=== PATIENT | male | born 1950 | race Caucasian/White ===

== ENCOUNTER 2025-05-11 06:32 | Observation (INO) | payer OTHER, SELFPAY ==
[2025-05-11] VITALS (50 sets, daily range): BP systolic 100–158; BP diastolic 61–78; PULSE 58–81; RESP 13–34; TEMP 36.6–36.9; O2SAT 92–99; BMI 27.6
--- NOTE | ~2025-05-11 | CT_ITS ---
EXAMINATION: CTA chest abdomen pelvis, 05/11/2025 8:45 CDT HISTORY: CP radiating to back; r/o dissection COMPARISON: No comparisons available. TECHNIQUE: CTA scan with 3D Reconstructions of the chest, abdomen and pelvis was performed with contrast Isovue 300, 92cc injected IV. One or more of the following dose reduction techniques were used: automated exposure control, adjustment of the mA and/or kV according to patient size, use of iterative reconstruction technique. Unless otherwise stated, incidental findings do not require dedicated follow up imaging FINDINGS: CT chest: No significant coronary calcification is present ([id number]) LUNGS: No tracheomalacia. No bronchiectasis. Minimal emphysematous changes. HEART AND PERICARDIUM: Mild cardiomegaly. AORTA: Normal caliber aorta. MEDIASTINUM: Unremarkable. THYROID: The thyroid is unremarkable. CT abdomen: LIVER: Portal vein patent. SPLEEN: Unremarkable, no splenomegaly. KIDNEYS: Right Kidney: Right kidney superior pole complex cyst 2.5 x 2.5 cm incompletely evaluated with additional complex cyst, outpatient renal ultrasound recommended. Left Kidney: Unremarkable. No calculi. No hydronephrosis ADRENAL GLANDS: Unremarkable. PANCREAS: Mild pancreatic atrophy. GALLBLADDER/BILIARY: Post cholecystectomy. STOMACH AND ESOPHAGUS: Visualized stomach and esophagus within normal limits. BOWEL/MESENTERY: Moderate fecal content. No colitis or diverticulitis. Appendix normal. Mesentery normal. No dilated small bowel loops. RETROPERITONEUM: Unremarkable AORTA/VASCULATURE: Normal caliber aorta. FREE FLUID OR FREE AIR: No free fluid.. CT pelvis: SOLID ORGANS/REPRODUCTIVE: Prostate not identified. BLADDER: Within normal limits. LYMPHADENOPATHY: No lymphadenopathy. OSSEOUS STRUCTURES: No acute osseous abnormality.No suspicious lesions. OVERLYING SOFT TISSUES: Postsurgical changes abdominal wall. Soft tissues right- sided. Prosthetic implant. Small bilateral fat-containing inguinal hernia. IMPRESSION: 1. No aneurysm or dissection, the major aortic tributaries are unremarkable. No acute process identified. Incidental findings detailed above Reviewed, dictated and finalized at location A.
--- NOTE | ~2025-05-11 | XR_ITS ---
EXAMINATION: XR chest 2V, 05/11/2025 6:54 CDT HISTORY: CHEST PAIN COMPARISON: No comparisons available. Technique: 2 views obtained. Findings: The lungs are clear, no effusion. No pneumothorax. Heart is normal size. Mediastinal and hilar contours are within normal limits. Bony thorax no acute abnormality. Impression: No acute cardiopulmonary abnormality. Reviewed, dictated and finalized at location A. Impression: No acute cardiopulmonary abnormality.
--- NOTE | 2025-05-11 06:34 | ECG_ITS ---
Test Date: 2025-05-11 06:42:43 Measurements Intervals [place] Rate: 79 P: 58 OK: 170 QRS: -6 QRSD: 102 T: 34 QT: 361 QTc: 416 Interpretive Statements SINUS RHYTHM WITH SINUS ARRHYTHMIA NONSPECIFIC T-WAVE ABNORMALITY ABNORMAL ECG No previous ECG available for comparison Electronically Signed On 05-11-2025 09:48:49 CDT by Sven Preciado M.D.
[2025-05-11 06:52] LABS: Hematocrit 42.4 % (42.0-52.0); Hemoglobin 14.7 g/dL (14.0-18.0); Immature Granulocyte Percent A 0.3 % (0-0.5); Lymphocytes Absolute Auto 1.56 K/mm3 (0.9-3.2); Mean Corpuscular HGB Conc 34.7 g/dl (32-36); Mean Corpuscular Hemoglobin 29.6 pg (26-34); Mean Corpuscular Volume 85.3 fl (80-100); Nucleated Red Blood Cells Absolute Auto 0.000 K/mm3 (0.0-0.012); Nucleated Red Blood Cells Perc 0.0 % (0.0-0.2); Platelet Count Result 211 k/mm3 (150-375); Red Blood Count 4.97 M/mm3 (4.6-6.20); White Blood Count 6.3 K/mm3 (4.5-10.0)
[2025-05-11 07:03] LABS: INR 0.9; Partial Thromboplastin Time 26.1 Seconds (22.3-36.8); Prothrombin Time 12.8 Seconds (11.1-14.7)
[2025-05-11 07:14] LABS: Alanine Aminotransferase 25 U/L (6-50); Albumin Level 4.5 g/dL (3.5-5.1); Alkaline Phosphatase 90 U/L (38-126); Anion Gap 9 mmol/L (4-12); Aspartate Amino Transferase 27 U/L (17-59); Bilirubin,Total 0.5 mg/dL (0.2-1.3); Blood Urea Nitrogen 21 mg/dL (9-20); Calcium 9.1 mg/dL (8.4-10.2); Carbon Dioxide 24 mmol/L (22-30); Chloride 105 mmol/L (98-107); Estimated CRCL calculation 79 ml/min; Estimated Glomerular Filt Rate > 60; Glucose 113 mg/dL (65-110); Lipase 140 U/L (23-300); Potassium 3.8 mmol/L (3.4-5.0); Sodium 138 mmol/L (137-145); Total Protein 7.2 g/dL (6.3-8.2)
[2025-05-11 07:24] LABS: Troponin I < 0.012 ng/mL (0.000-0.034)
--- NOTE | 2025-05-11 08:23 | ED.CHESTPAIN ---
HPI - Chest Pain General Chief Complaint: Chest Pain Stated Complaint: chest pain Time Seen by Provider: 05/11/25 07:36 Source: patient and family () Mode of arrival: ambulatory Limitations: no limitations History of Present Illness HPI narrative: Patient presents with report of acute onset left-sided chest pain starting at 530 this morning and radiating towards his back. Patient states he is in considerable amount of pain. At 1st he thought it was indigestion and so he took an antacid but there was no relief. He describes it as a stabbing. No radiation to jaw or arms. He states awhile ago he had some right lower extremity swelling but that was after an ankle sprain and it did resolve. No edema currently. He has had a cough for the past 2-4 weeks and is currently being treated for bronchitis. Not on anticoagulation. Takes 81 mg aspirin per day. For the cough he sometimes has to lb on his chest but is already productive of clear sputum. Patient had similar pain like this before and had a myocardial infarction approximately 20 years ago for which 1 stent was placed at [facility] in [place]. Follows with insurance and financial services agent Dr. Homar Eden. He does feel short of breath. He denies any nausea, vomiting, fevers or chills. He is currently on steroids, prednisone. He states he was also prescribed erythromycin (?, denies it being azithromycin) but has not been taking this due to concern for interference with the trazodone he takes at night to sleep. History of prostate cancer status post removal of prostate and 35 rounds of radiation. He subsequently had urinary incontinence and now has an AUS. Cardiac risk factors HTN: Yes HLD: Yes DM: No (previously on metformin but lost 60 pounds and removed from diagnosis) Obese: Yes by today's measurements, slightly Smoker: No Personal history MT/TIA/CVA: Yes Fam Hx MT in first degree relative <65yo: No (father >65) Related Data Home Medications ?Medication ?Instructions ?Recorded ?Confirmed ?Last Taken ?Type aspirin 81 mg capsule 81 mg PO DAILY 05/11/25 05/11/25 05/10/25 21:00 History atorvastatin 40 mg tablet 40 mg PO DAILY 05/11/25 05/11/25 05/10/25 21:00 History carvedilol 6.25 mg tablet 6.25 mg PO BID 0905/11/25 05/10/25 21:00 History methylprednisolone 4 mg tablets in See Rx Instructions .Route .COMPLEX 05/11/25 05/11/25 05/10/25 History a dose pack [id number] 300 mcg-K 60 1 tablet PO DAILY 05/11/25 05/11/25 05/10/25 09:00 History mcg-lycop 600 mcg-lutein 300 mcg tablet ([facility]) nifedipine 60 mg tablet,extended 60 mg PO DAILY 05/11/25 05/11/25 05/10/25 21:00 History release pantoprazole 40 mg tablet,delayed 40 mg PO DAILY 05/11/25 05/11/25 05/10/25 09:00 History release spironolactone 25 mg tablet 25 mg PO DAILY 05/11/25 05/11/25 05/10/25 09:00 History tadalafil 20 mg tablet 20 mg PO PRN PRN sexual activity 05/11/25 05/11/25 05/04/25 History trazodone 100 mg tablet 100 mg PO DAILY 05/11/25 05/11/25 05/10/25 21:00 History valsartan 80 mg tablet 80 mg PO BID 05/11/25 05/11/25 05/10/25 21:00 History Allergies Allergy/AdvReac Type Severity Reaction Status Date / Time Penicillins Allergy Unknown Unknown Verified 05/11/25 06:40 [facility] Past Medical History Medical History (Updated 05/11/25 @ 14:52 by Dora Rubalcava APRN) Hyperlipidemia Hypertension History of prostate cancer s/p removal and radiation Myocardial infarct approx 2004 Surgical History Surgical History H/O heart artery stent x1, [facility] History of urologic surgery AUS, artificial urinary sphincter Family History Family History Father Acute myocardial infarction >65yo Social History Social History Social History: Smoking status: Never smoker Lack of Transportation: No Lack of Food: Never True Current Housing: I Have Housing Concerned About Future Housing: No Difficulty Paying Gas/Electric Bills: No Difficulty Paying for Meds: No Currently Unemployed: No Education: High School Diploma/GED Difficulty w/ Childcare or Family Care: No Living arrangements: with family Additional living arrangements comments: Spouse/ Sexual Orientation (if Verbalized by the Patient): Lesbian, [place]antig[place], or Homosexual Spiritual care concerns: No Exam Narrative: GENERAL: Well-appearing, well-nourished HEAD: Normocephalic, atraumatic. EYES: Non injected, non icteric ENT: Nares clear, no rhinorrhea or epistaxis. Gross auditory acuity intact. NECK: Supple. No meningismus. CHEST: Speaking in full sentences. No respiratory distress. Lungs clear to auscultation bilaterally without crackles or wheezes. HEART: Regular rate and rhythm. . ABDOMEN: Soft, nondistended. No rigidity or guarding. Not peritoneal EXTREMITIES: Normal range of motion. No bilateral lower extremity edema. SKIN: Warm, dry, no rash. NEURO: No focal deficits. Alert and oriented. Answering questions. Following commands. Normal speech without aphasia or dysarthria. PSYCH: Normal mood and affect. Course Vital Signs Vital signs: Vital Signs Temperature 98.4 F 05/11/25 06:37 Pulse Rate 81 05/11/25 06:37 Respiratory Rate 14 05/11/25 06:37 Blood Pressure 140/71 05/11/25 06:37 Pulse Oximetry 97 05/11/25 06:37 Oxygen Delivery Room Air 05/11/25 06:37 Temperature 97.9 F 05/12/25 04:00 Pulse Rate 68 05/12/25 04:00 Respiratory Rate 15 05/12/25 04:00 Blood Pressure 116/57 L 05/12/25 04:00 Pulse Oximetry 97 05/12/25 04:00 Oxygen Delivery Room Air 05/11/25 06:37 MDM - Chest Pain MDM Narrative Medical decision making narrative: Patient presents with chest pain started at 5:30 a.m. this morning and radiates towards his back. In the emergency department they are afebrile with vital signs within normal limits. HEART SCORE History 2 highly suspicious 1 moderately suspicious 0 slightly suspicious History score [address] depression/elevation not due to LBBB, LVH, or digoxin [address] depression but LBBB, LVH, nonspecific repolarization changes 0 normal ECG score 0 Age 2 >/= 65 1 45-64 0 <45 Age score 2 Risk factors (HTN, hypercholesterolemia, DM, obesity with BMI >30, current smoker or cessation </=3mo), positive fam hx with parent or sibling with CVD before age 65, atherosclerotic disease (prior MT, PCI/CABG, CVA/TIA, or peripheral arterial disease) 2 >/= 3 risk factors or history of atherosclerotic dz 1 - 1-2 risk factors 0 no known risk factors Risk factor score 2 Initial Troponin 2 >3 times normal limit 1 1-3 times normal limit 0 less than or equal to normal limit Troponin score 0 Total HEART Score 4 D-dimer mildly elevated. YEARS Algorithm : No Clinical signs of DVT: No Hemoptysis: No PE is most likely diagnosis: No D-dimer >1000ng/mL: No Result: PE Excluded. Will defer further work up for this. Patient received aspirin as well as sublingual nitroglycerin. He notes that the nitroglycerin immediately improved his symptoms from 4 out of 10 in severity to <1. States his last stress test was approximately 1 year ago although the date he had his myocardial infarction approximately 20 years ago was the same day as he had a negative/reassuring stress test. Says it has been several years since he had an echocardiogram. Repeat troponin normal. Did not receive call back from AM hospitalist. Discussed patient with therapeutic consultant mid-morning hospitalist Dr Garcia who accepts admission but requests cardiology be called/consulted. Discussed patient with therapeutic consultant insurance and financial services agent Dr Preciado who agrees with admission for unstable angina requesting NPO at midnight, heparin, and echo. Confirm that CTA dissection protocol study had been performed. Orders will be placed for IMU. Differential Diagnosis Differential diagnosis: Likely stable angina, unstable angina pectoris, atypical chest pain, st elevation myocardial infarction, costochondritis, chest pain, biliary colic and other (Aortic dissection, pneumonia, bronchitis, acute viral syndrome) Lab Data Attestation: I reviewed the patient's lab results. Lab results narrative: CBC generally unremarkable except abnormality on the differential. Chemistry unremarkable. Normal renal function. No marked electrolyte abnormalities. 05/12/25 03:49 05/11/25 06:44 Labs: Lab Results 05/11/25 05/11/25 05/11/25 Range/Units 06:44 09:00 09:48 WBC 6.3 (4.5-10.0) K/mm3 RBC 4.97 (4.6-6.20) M/mm3 Hgb 14.7 (14.0-18.0) g/dL Hct 42.4 (42.0-52.0) % MCV 85.3 (80-100) fl MCH 29.6 (26-34) pg MCHC 34.7 (32-36) g/dl RDW 13.0 (11.5-14.5) % Plt Count 211 (150-375) k/mm3 MPV 8.8 (7.4-10.4) fl Immature Gran % (Auto) 0.3 (0-0.5) % Neut % (Auto) 64.9 (45.5-73.1) % Lymph % (Auto) 24.8 (18.3-44.2) % [place] % (Auto) 9.6 H (2.6-8.5) % Eos % (Auto) 0.2 (0-4.4) % Baso % (Auto) 0.2 (0.2-1.2) % Lymph # (Auto) 1.56 (0.9-3.2) K/mm3 [place] # (Auto) 0.6 (0.1-0.6) K/mm3 Eos # (Auto) 0.0 (0-0.3) K/mm3 Baso # (Auto) 0.0 (0.0-0.1) K/mm3 Abs Immat Gran (auto) 0.02 (0.00-0.031) K/mm3 Absolute Neuts (auto) 4.1 (1.3-6.7) K/mm3 Absolute Nucleated RBC 0.000 (0.0-0.012) K/mm3 Nucleated RBC % 0.0 (0.0-0.2) % PT 12.8 (11.1-14.7) Seconds INR 0.9 APTT 26.1 (22.3-36.8) Seconds D-Dimer 0.51 H (<0.48) ug/mL Sodium 138 (137-145) mmol/L Potassium 3.8 (3.4-5.0) mmol/L Chloride 105 (98-107) mmol/L Carbon Dioxide 24 (22-30) mmol/L Anion Gap 9 (4-12) mmol/L BUN 21 H (9-20) mg/dL Creatinine 0.80 (0.7-1.3) mg/dL Estim Creat Clear Calc 79 ml/min Estimated GFR > 60 (59 - ) Glucose 113 H (65-110) mg/dL Calcium 9.1 (8.4-10.2) mg/dL Total Bilirubin 0.5 (0.2-1.3) mg/dL AST 27 (17-59) U/L ALT 25 (6-50) U/L Alkaline Phosphatase 90 (38-126) U/L Troponin I < 0.012 < 0.012 (0.000-0.034) ng/mL Total Protein 7.2 (6.3-8.2) g/dL Albumin 4.5 (3.5-5.1) g/dL Lipase 140 (23-300) U/L Urine Color (Yellow) Urine Appearance (Clear) Urine pH (5.0-9.0) Ur Specific [place] (1.001-1.035) Urine Protein (Negative) mg/dL Urine Glucose (UA) (Negative) mg/dL Urine Ketones (Negative) mg/dL Ur Blood (Man) (Negative) Urine Nitrate (Negative) Urine Bilirubin (Negative) Urine Urobilinogen (<2.0) mg/dL Leukocyte Esterase Rfl (Negative) MICHAEL/UL Urine Opiates Screen (Negative) Urine Methadone Screen (Negative) Ur Barbiturates Screen (Negative) Ur Phencyclidine Scrn (Negative) Ur Amphetamine Screen (Negative) U Benzodiazepines Scrn (Negative) Urine Cocaine Screen (Negative) U Cannabinoids Screen (Negative) Influenza A (RT-PCR) Negative (Negative) Influenza B (RT-PCR) Negative (Negative) RSV (RT-PCR) Negative (Negative) SARS-CoV-2 RNA (RT-PCR) Negative (Negative) 05/11/25 Range/Units 11:00 WBC (4.5-10.0) K/mm3 RBC (4.6-6.20) M/mm3 Hgb (14.0-18.0) g/dL Hct (42.0-52.0) % MCV (80-100) fl MCH (26-34) pg MCHC (32-36) g/dl RDW (11.5-14.5) % Plt Count (150-375) k/mm3 MPV (7.4-10.4) fl Immature Gran % (Auto) (0-0.5) % Neut % (Auto) (45.5-73.1) % Lymph % (Auto) (18.3-44.2) % [place] % (Auto) (2.6-8.5) % Eos % (Auto) (0-4.4) % Baso % (Auto) (0.2-1.2) % Lymph # (Auto) (0.9-3.2) K/mm3 [place] # (Auto) (0.1-0.6) K/mm3 Eos # (Auto) (0-0.3) K/mm3 Baso # (Auto) (0.0-0.1) K/mm3 Abs Immat Gran (auto) (0.00-0.031) K/mm3 Absolute Neuts (auto) (1.3-6.7) K/mm3 Absolute Nucleated RBC (0.0-0.012) K/mm3 Nucleated RBC % (0.0-0.2) % PT (11.1-14.7) Seconds INR APTT (22.3-36.8) Seconds D-Dimer (<0.48) ug/mL Sodium (137-145) mmol/L Potassium (3.4-5.0) mmol/L Chloride (98-107) mmol/L Carbon Dioxide (22-30) mmol/L Anion Gap (4-12) mmol/L BUN (9-20) mg/dL Creatinine (0.7-1.3) mg/dL Estim Creat Clear Calc ml/min Estimated GFR (59 - ) Glucose (65-110) mg/dL Calcium (8.4-10.2) mg/dL Total Bilirubin (0.2-1.3) mg/dL AST (17-59) U/L ALT (6-50) U/L Alkaline Phosphatase (38-126) U/L Troponin I (0.000-0.034) ng/mL Total Protein (6.3-8.2) g/dL Albumin (3.5-5.1) g/dL Lipase (23-300) U/L Urine Color Yellow (Yellow) Urine Appearance Clear (Clear) Urine pH 6.5 (5.0-9.0) Ur Specific [place] > 1.045 H (1.001-1.035) Urine Protein Negative (Negative) mg/dL Urine Glucose (UA) Negative (Negative) mg/dL Urine Ketones Negative (Negative) mg/dL Ur Blood (Man) Negative (Negative) Urine Nitrate Negative (Negative) Urine Bilirubin Negative (Negative) Urine Urobilinogen 1.0 (<2.0) mg/dL Leukocyte Esterase Rfl Negative (Negative) MICHAEL/UL Urine Opiates Screen Negative (Negative) Urine Methadone Screen Negative (Negative) Ur Barbiturates Screen Negative (Negative) Ur Phencyclidine Scrn Negative (Negative) Ur Amphetamine Screen Negative (Negative) U Benzodiazepines Scrn Negative (Negative) Urine Cocaine Screen Negative (Negative) U Cannabinoids Screen Negative (Negative) Influenza A (RT-PCR) (Negative) Influenza B (RT-PCR) (Negative) RSV (RT-PCR) (Negative) SARS-CoV-2 RNA (RT-PCR) (Negative) Imaging Data Attestation: I personally reviewed and interpreted this imaging study as follows: My impression: No acute intra thoracic process on my independent interpretation of chest x-ray Radiologist's impression: Impressions Chest/Abdomen/Pelvis CTA 05/11/25 10:32 IMPRESSION: 1. No aneurysm or dissection, the major aortic tributaries are unremarkable. No acute process identified. Incidental findings detailed above ECG Data EKG #1: Attestation: I personally reviewed and interpreted this ECG as follows: ECG completion date: 05/11/25 ECG completion time: 06:42 Interpretation: Normal sinus rhythm a rate of 79 beats per minute. Mild R to R variation consistent with sinus arrhythmia. Likely due to respiratory variation. NV interval 170. QRS 102. QT/QTC 361/416. No T-wave inversions. No marked ST elevations or depressions. EKG #2: Attestation: I personally reviewed and interpreted this ECG as follows: ECG completion date: 05/11/25 ECG completion time: 09:49 Interpretation: Normal sinus rhythm at a rate of 61 beats per minute. NV interval 183. QRS 86. QT/QTC 413/419. Good R-wave progression across the precordial leads. No T-wave inversions. Discharge Plan Discharge Clinical Impression: Unstable angina Chest pain Qualifiers: Chest pain type: unspecified Qualified Code(s): R07.9 - Chest pain, unspecified Patient Disposition: Still a Patient Condition: Stable Time of Disposition: 12:11
[2025-05-11] MEDS: BENZONATATE 100 MG CAPSULE PO (09:03)
[2025-05-11] MEDS: NITROGLYCERIN SL 0.4 MG TABLET SUBLINGUAL (09:03)
[2025-05-11] MEDS: ASPIRIN 81 MG CHEWABLE TABLET 324 MG PO (09:03)
--- NOTE | 2025-05-11 09:12 | PC.NURSE ---
Pt denies cp at present.
[2025-05-11 09:42] LABS: Influenza A QL RT-PCR Negative (Negative); Influenza B QL RT-PCR Negative (Negative); RSV RNA, RT-PCR Negative (Negative); SARS-CoV-2 RNA PCR Negative (Negative)
--- NOTE | 2025-05-11 09:44 | ECG_ITS ---
Test Date: 2025-05-11 09:49:39 Measurements Intervals [place] Rate: 61 P: 51 CO: 183 QRS: -7 QRSD: 86 T: 31 QT: 413 QTc: 419 Interpretive Statements SINUS RHYTHM NONSPECIFIC T-WAVE ABNORMALITY ABNORMAL ECG Compared to ECG 05/11/2025 06:42:43 Sinus arrhythmia no longer present T-wave abnormality still present Electronically Signed On 05-11-2025 12:34:06 CDT by Sven Preciado M.D.
[2025-05-11 10:32] LABS: Troponin I < 0.012 ng/mL (0.000-0.034)
[2025-05-11 11:14] LABS: Add Urine Microscopic? NO; Appearance Urine Clear (Clear); Glucose Urine UA Negative (Negative); Leukocyte Esterase Ur Negative LEU/UL (Negative); Nitrate Urine Negative (Negative); Specific Grav Ur > 1.045 (1.001-1.035)
[2025-05-11 11:32] LABS: Cannabinoid Screen Urine Negative (Negative)
--- NOTE | 2025-05-11 11:56 | PM.IMHP ---
H&P: HPI History of Present Illness Date/Time: 05/11/25 11:56 Chief Complaint: Chest Pain Narrative: 75 y/o M with PMH of OR, HTN, prostate cancer s/p prostatectomy/radiation, remote history of diabetes (lost 60 lb and A1c improved, no longer on medications), and HLD presents here with chest pain. The patient presents here from home on 05/11 for further evaluation of chest pain. He reports onset around 5:30 a.m. he describes the pain as left-sided, indigestion, as if a poker was stabbing directly into his back, constant, no aggravating factors, and alleviated by aspirin/nitro. The pain woke him from his sleep. He reports associated shortness of breath and cough (currently being treated for bronchitis, currently on steroids and was prescribed an antibiotic however he did not start this). Denies diaphoresis, nausea, vomiting, or dizziness. He initially believed pain was due to indigestion and took antacid without relief. Patient has a history of myocardial infarction in 2010. At that time he reports his symptoms consisted of chest pain with radiation into his bilateral arms and he was extremely diaphoretic. He had a subsequent stent x1 placed at [facility] in [place]. The patient does follow with a closing machine operator, Robyn Eden MD. He is not on anticoagulation, does take an aspirin 81 mg daily. He reports a stress test approximately 1 year ago which looked okay, believes this was done at [facility]. He currently denies any recurrence of chest pain and is resting comfortably. Initial VS at presentation: 98.4? F, HR 81 R 14, 140/71, and 97% on RA. ED workup showed: No leukocytosis, no anemia, normal coags, D-dimer 0.51 (negative when adjusted for age), creatinine 0.80 and GFR >60, glucose 113, initial troponin negative x2, and UA showed a high specific gravity otherwise unremarkable. UDS and viral PCR negative. CXR showed no acute cardiopulmonary abnormality. CTA chest/abdomen/pelvis showed no aneurysm, no dissection, major aortic tributaries unremarkable, no acute process identified. EKG showed sinus rhythm with sinus arrhythmia, nonspecific T-wave abnormality. Review of Systems Review of Systems: All systems reviewed & are unremarkable except as noted in HPI and below [facility] Past Medical History Medical History (Updated 05/11/25 @ 14:52 by Dora Rubalcava APRN) Hyperlipidemia Hypertension History of prostate cancer s/p removal and radiation Myocardial infarct approx 2004 Surgical History Surgical History H/O heart artery stent x1, [facility] History of urologic surgery AUS, artificial urinary sphincter Family History Family History Father Acute myocardial infarction >65yo Social History Social History Social History: Smoking status: Never smoker Lack of Transportation: No Lack of Food: Never True Current Housing: I Have Housing Concerned About Future Housing: No Difficulty Paying Gas/Electric Bills: No Difficulty Paying for Meds: No Currently Unemployed: No Education: High School Diploma/GED Difficulty w/ Childcare or Family Care: No Living arrangements: with family Additional living arrangements comments: Spouse/ Sexual Orientation (if Verbalized by the Patient): Lesbian, Lantigua, or Homosexual Spiritual care concerns: No Meds Home Medications and Allergies Home Medications ?Medication ?Instructions ?Recorded ?Confirmed ?Type aspirin 81 mg capsule 81 mg PO DAILY 05/11/25 05/11/25 History atorvastatin 40 mg tablet 40 mg PO DAILY 05/11/25 05/11/25 History carvedilol 6.25 mg tablet 6.25 mg PO BID 05/11/25 05/11/25 History methylprednisolone 4 mg tablets in See Rx Instructions .Route .COMPLEX 05/11/25 05/11/25 History a dose pack [id number] 300 mcg-K 60 1 tablet PO DAILY 05/11/25 05/11/25 History mcg-lycop 600 mcg-lutein 300 mcg tablet ([facility]) nifedipine 60 mg tablet,extended 60 mg PO DAILY 05/11/25 05/11/25 History release pantoprazole 40 mg tablet,delayed 40 mg PO DAILY 05/11/25 05/11/25 History release spironolactone 25 mg tablet 25 mg PO DAILY 05/11/25 05/11/25 History tadalafil 20 mg tablet 20 mg PO PRN PRN sexual activity 05/11/25 05/11/25 History trazodone 100 mg tablet 100 mg PO DAILY 05/11/25 05/11/25 History valsartan 80 mg tablet 80 mg PO BID 05/11/25 05/11/25 History Allergies Allergy/AdvReac Type Severity Reaction Status Date / Time Penicillins Allergy Unknown Unknown Verified 05/11/25 06:40 Vital Signs Vital Signs - 24 hr 05/11/25 06:37 05/11/25 06:40 05/11/25 06:44 Temperature 98.4 F Pulse Rate 81 78 81 Respiratory Rate 14 24 H Blood Pressure 140/71 Pulse Oximetry 97 Oxygen Delivery Room Air 05/11/25 06:45 05/11/25 06:46 05/11/25 07:00 Temperature Pulse Rate 77 74 Respiratory Rate 14 16 Blood Pressure 140/71 Pulse Oximetry 97 97 94 Oxygen Delivery 05/11/25 07:15 05/11/25 07:30 05/11/25 07:45 Temperature Pulse Rate 71 74 68 Respiratory Rate 14 13 15 Blood Pressure 129/67 Pulse Oximetry 97 95 94 Oxygen Delivery 05/11/25 07:46 05/11/25 08:00 05/11/25 08:17 Temperature Pulse Rate 70 76 68 Respiratory Rate 14 23 H 14 Blood Pressure 135/72 Pulse Oximetry 94 97 96 Oxygen Delivery 05/11/25 08:30 05/11/25 08:31 05/11/25 08:58 Temperature Pulse Rate 74 72 73 Respiratory Rate 19 14 15 Blood Pressure 126/77 Pulse Oximetry 97 96 96 Oxygen Delivery 05/11/25 08:59 05/11/25 09:00 05/11/25 09:02 Temperature Pulse Rate 72 78 78 Respiratory Rate 13 13 17 Blood Pressure 140/74 135/72 Pulse Oximetry 97 97 97 Oxygen Delivery 05/11/25 09:03 05/11/25 09:11 05/11/25 09:16 Temperature Pulse Rate 73 76 76 Respiratory Rate 16 22 H 16 Blood Pressure 118/67 Pulse Oximetry 97 92 92 Oxygen Delivery 05/11/25 09:17 05/11/25 09:30 05/11/25 09:51 Temperature Pulse Rate 80 67 66 Respiratory Rate 15 18 13 Blood Pressure 100/63 116/68 Pulse Oximetry 92 94 96 Oxygen Delivery 05/11/25 10:00 05/11/25 10:30 05/11/25 11:08 Temperature Pulse Rate 62 63 66 Respiratory Rate 18 16 18 Blood Pressure 114/65 122/63 120/65 Pulse Oximetry 95 97 95 Oxygen Delivery Exam Const: General: comfortable and no acute distress Other: , elderly, male, nontoxic appearance HENMT: Face/Nose/Sinus: Normal nares present Mouth: Yes moist mucous membranes Eyes: General: appearance normal, both eyes and all related structures Sclera: sclerae normal Pupils: Equal, round and reactive pupils present EOM: EOMs intact bilaterally Resp: Effort & Inspection: normal respiratory effort Auscultation: clear to auscultation bilaterally Cardio: Rate: regular rate Rhythm: regular rhythm Other: S1-S2 present without murmur, rub, ectopy GI: Other: Abdomen soft, nondistended, nontender. Normoactive bowel sounds in all quadrants. Skin: General skin exam: normal color and no rashes or lesions noted Wounds: no wounds Neuro: Speech: normal speech Motor exam (neuro): 5/5 motor strength present throughout Sensory Exam: normal sensation Other: A&O x4 Extrem: General: normal to inspection Psych: Mental Status: mental status grossly normal Affect: normal affect Other: Good insight and judgment, very pleasant H&P: Results Labs Labs: Short CBC 05/11/25 Range/Units 06:44 WBC 6.3 (4.5-10.0) K/mm3 Hgb 14.7 (14.0-18.0) g/dL Hct 42.4 (42.0-52.0) % Plt Count 211 (150-375) k/mm3 BMP 05/11/25 06:44 Sodium 138 Potassium 3.8 Chloride 105 Carbon Dioxide 24 BUN 21 H Creatinine 0.80 Glucose 113 H Calcium 9.1 Cardiac Enzymes 05/11/25 05/11/25 Range/Units 06:44 09:48 Troponin I < 0.012 < 0.012 (0.000-0.034) ng/mL Liver Function 05/11/25 Range/Units 06:44 Total Bilirubin 0.5 (0.2-1.3) mg/dL AST 27 (17-59) U/L ALT 25 (6-50) U/L Alkaline Phosphatase 90 (38-126) U/L Albumin 4.5 (3.5-5.1) g/dL Urine 05/11/25 Range/Units 11:00 Urine Color Yellow (Yellow) Urine Appearance Clear (Clear) Urine pH 6.5 (5.0-9.0) Ur Specific [place] > 1.045 H (1.001-1.035) Urine Protein Negative (Negative) mg/dL Urine Glucose (UA) Negative (Negative) mg/dL Assessment and Plan Assessment and plan (1) Chest pain: Qualifiers: Chest pain type: unspecified Qualified Code(s): R07.9 - Chest pain, unspecified Code(s): R07.9 - Chest pain, unspecified Status: Acute Assessment and Plan: Presented here with left-sided chest pain that is described as stabbing with radiation into his back she, started at 5:30 a.m. and woke him from his sleep. Relieved with aspirin and nitro. No relief with Tums. No recurrence since admission. - EKG, initial: sinus rhythm with sinus arrhythmia, nonspecific T-wave abnormality. - CXR:No acute cardiopulmonary abnormality. - Troponin: < 0.012 x3 - ASA 324 given, continue 81 daily - SL nitro PRN - cardiology consulted, awaiting recs - started on heparin gtt on 05/11, discontinued as the patient remained symptom free and has had 3 negative troponins - no echo, stress test, or cardiac catheterization on file. requesting records from [facility] for stress test done approx 1 year ago. - NPO at midnight in case of need for procedure - telemetry monitoring (2) Hyperlipidemia: Qualifiers: Hyperlipidemia type: unspecified Qualified Code(s): E78.5 - Hyperlipidemia, unspecified Code(s): E78.5 - Hyperlipidemia, unspecified Status: Chronic Assessment and Plan: - continue atorvastatin 40 mg daily (3) Hypertension: Qualifiers: Hypertension type: primary hypertension Qualified Code(s): I10 - Essential (primary) hypertension Code(s): I10 - Essential (primary) hypertension Status: Chronic Assessment and Plan: - chronic, currently 136/71 - continue home medications: Carvedilol, nifedipine, spironolactone, valsartan - monitor Plan Diet: Heart healthy, NPO midnight GI Prophylaxis: Ppi p.o. DVT Prophylaxis: Heparin discontinued, SCDs IV fluids: None Lines/Tubes: Peripheral IV Code Status: Full code Quality VTE Prophylaxis VTE prophylaxis: mechanical ordered Hospitalist MIPS Advance Care Plan I have confirmed that the patient's Advanced Care Plan is present, code status is documented, or surrogate decision maker is listed in patient medical record.: Yes Medication Reconciliation I have utilized all available resources to obtain, update and review the patients current medications (includes all prescriptions, OTC, herbals, cannabis, and nutritional supplements).: Yes
[2025-05-11] MEDS: HEPARIN SOD/D5W 100 UNITS/ML 25,000 UNITS/250 ML BAG 10 UNITS IV CONT (12:34)
[2025-05-11 13:03] LABS: INR 1.0; Prothrombin Time 13.4 Seconds (11.1-14.7)
[2025-05-11 13:04] LABS: Partial Thromboplastin Time 25.6 Seconds (22.3-36.8)
[2025-05-11 13:07] LABS: Troponin I < 0.012 ng/mL (0.000-0.034)
--- NOTE | 2025-05-11 13:17 | ECG_ITS ---
Test Date: 2025-05-11 13:22:20 Measurements Intervals [place] Rate: 70 P: 0 CT: 0 QRS: -13 QRSD: 93 T: 22 QT: 387 QTc: 419 Interpretive Statements NORMAL SINUS RHYTHM WITH PREMATURE ATRIAL CONTRACTIONS NONSPECIFIC ST ABNORMALITY ABNORMAL ECG Electronically Signed On 05-12-2025 07:45:56 CDT by Sven Preciado M.D.
--- NOTE | 2025-05-11 14:03 | ADMGEN ---
This patient, Kiran Ballesteros Jr, was admitted to IMU Room 202-01. Patient/family oriented to hospital policies and general routines including ID bracelet, bed and alarms, visiting hours, pain management, procedures, bathroom and other care routines, personal items, smoking policy, room service/diet, and visiting hours. Information on how to activate the Rapid Response Team has been discussed. Patient/Family are encouraged to report perceived risks to care and to ask questions if they do not understand what they are told or what they should do.
[2025-05-11] MEDS: ATORVASTATIN 40 MG TABLET PO (16:14)
[2025-05-11] MEDS: OPTI-GEN TAB 1 TABLET PO (16:14)
[2025-05-11] MEDS: PANTOPRAZOLE 40 MG TABLET PO (16:15)
[2025-05-11] MEDS: SPIRONOLACTONE 25 MG TABLET PO (16:15)
[2025-05-11] MEDS: methylPREDNISolone (MEDROL) DOSEPACK 4 MG TABLETS PO (16:16)
[2025-05-11] MEDS: VALSARTAN 80 MG TABLET PO (21:05)
[2025-05-12] VITALS (11 sets, daily range): BP systolic 116–143; BP diastolic 57–79; PULSE 61–90; RESP 15–18; TEMP 36.6–36.9; O2SAT 94–97
--- NOTE | 2025-05-12 | ECHO_ITS ---
Patient Info Name: Kiran Ballesteros Jr Age: 75 years : 1950 Gender: Male Ht: 69 in Wt: 209 lbs BSA: 2.18 m2 HR: 68 bpm BP: 116 / 57 mmHg Heart Rhythm: Sinus Rhythm Technical Quality: Good Exam Date: 05/12/2025 9:32 AM Patient Status: I Admit Date: 05/11/2025 Exam Type: CA echo doppler color flow Complete two-dimensional, color flow and Doppler transthoracic echocardiogram is performed. Staff Referring Physician: Paul Nettles Potash Flaker: Henry Liu III Attending Provider: Trice Garcia MD Summary 1. Complete two-dimensional, color flow and Doppler transthoracic echocardiogram is performed. 2. Left ventricular chamber dimension is normal. 3. Left ventricular systolic function is normal, estimated at 60-65. 4. There is mildly increased left ventricular wall thickness. 5. The left ventricular diastolic function is grade I diastolic dysfunction. 6. Left atrial chamber dimension is mildly enlarged. 7. There is mild mitral valve regurgitation. 8. There is mild tricuspid valve regurgitation. 9. There is mild pulmonic regurgitation. Left Ventricle Left ventricular chamber dimension is normal. Left ventricular systolic function is normal, estimated at 60-65. There is mildly increased left ventricular wall thickness. The left ventricular diastolic function is grade I diastolic dysfunction. Right Ventricle Right ventricular chamber dimension is normal. Right ventricular systolic function is normal. Left Atria Left atrial chamber dimension is mildly enlarged. Right Atria Right atrial chamber dimension is normal. Atrial Septum Intact interatrial septum visualized by color flow imaging. Aortic Valve The aortic valve is trileaflet. There is no aortic valve stenosis. There is mild aortic valve sclerosis. There is no aortic valve stenosis with a peak velocity of 136 cm/s, mean gradient of 4 mmHg, and aortic valve area of 3.9 cm2. There is trace aortic valve regurgitation. Pulmonic Valve The pulmonic valve is normal. There is no pulmonic valve stenosis. There is mild pulmonic regurgitation. Mitral Valve The mitral valve has normal leaflets. There is no mitral valve stenosis. There is mild mitral valve regurgitation. Tricuspid Valve The tricuspid valve leaflets are normal. There is no significant tricuspid valve stenosis. There is mild tricuspid valve regurgitation. Pericardium/Pleural The pericardium appears normal. There is no pericardial effusion. Inferior Vena Cava Normal inferior vena cava with >50% collapse upon inspiration consistent with normal right atrial pressure, 5 mmHg. Aorta The aortic root size at the sinus of Valsalva is normal. The prox ascending aorta size is normal. Left Ventricular Outflow Tract Name Value Normal LVOT 2D LVOT Diameter 2.3 cm LVOT Doppler LVOT Peak Velocity 117 cm/s LVOT Peak Gradient 5 mmHg LVOT Mean Gradient 2 mmHg LVOT VTI 24 cm LVOT VTI/AV VTI Ratio 0.9 LVOT Stroke Volume 101 ml LVOT CO 17.2 l/min LVOT CI 7.9 l/min/m2 Pulmonic Valve Name Value Normal PV Doppler PV Peak Velocity 122 cm/s PV Peak Gradient 6 mmHg PV Mean Gradient 3 mmHg PV Regurgitation Doppler NJ Peak End Diastolic Velocity 116 cm/s Mitral Valve Name Value Normal MV Doppler MV Peak Gradient 4 mmHg MV Mean Gradient 1 mmHg MV Area (Cont Eq VTI) 4.2 cm2 MV Diastolic Function MV E Peak Velocity 76 cm/s MV A Peak Velocity 100 cm/s MV E/A 0.8 MV Decel Time (PW) 212 ms MV Annular TDI MV E/e' (Septal) 8.1 MV E/e' (Lateral) 7.7 MV E/e' (Average) 7.9 Tricuspid Valve Name Value Normal Estimated PAP/RSVP RA Pressure 5 mmHg <=5 TV Annular TDI TV Lateral Arleth s' Velocity 16.1 cm/s >=9.5 Aortic Valve Name Value Normal AV Doppler AV Peak Velocity 136 cm/s AV Peak Gradient 7 mmHg AV Mean Gradient 4 mmHg AV VTI 26 cm AV Area (Cont Eq VTI) 3.9 cm2 >=3.0 AV Area (Cont Eq Philippe) 3.7 cm2 AV DI (Philippe) 0.86 AV Regurgitation 2D LVOT Area 4.3 cm2 Ventricles Name Value Normal LV Dimensions 2D/MM IVS Diastolic Thickness (2D) 1.0 cm 0.6-1.0 LVID Diastole (2D) 5.0 cm 4.2-5.8 LVIW Diastolic Thickness (2D) 1.0 cm 0.6-1.0 LVID Systole (2D) 3.8 cm 2.5-4.0 LVOT Diameter 2.3 cm LV Mass (2D Cubed) 188.32 g 88.00-224.00 LV Mass Index (2D Cubed) 87 g/m2 49-115 Relative Wall Thickness (2D) 0.41 <=0.42 LV Fractional Shortening/Ejection Fraction 2D/MM LV Fractional Shortening (2D) 25 % 25-43 LV EF (2D Teichholz) 49 % LV Diastolic Volume (4C MOD) 80 ml LV EF (4C MOD) 61 % LV Diastolic Length (4C) 8.3 cm LV Systolic Length (4C) 6.0 cm LV Stroke Volume (4C MOD) 48 ml Atria Name Value Normal LA Dimensions LA Volume (4C A-L) 58 ml LA Volume (BP A-L) 67 ml RA Dimensions RA Systolic [place] Length (4C) 6.2 cm 2.1-2.7 RA Area (4C) 25.3 cm2 <=18.0 Report Signatures
[2025-05-12 04:41] LABS: Hematocrit 42.5 % (42.0-52.0); Hemoglobin 14.6 g/dL (14.0-18.0); Immature Granulocyte Percent A 0.6 % (0-0.5); Lymphocytes Absolute Auto 0.80 K/mm3 (0.9-3.2); Mean Corpuscular HGB Conc 34.4 g/dl (32-36); Mean Corpuscular Hemoglobin 29.7 pg (26-34); Mean Corpuscular Volume 86.6 fl (80-100); Nucleated Red Blood Cells Absolute Auto 0.000 K/mm3 (0.0-0.012); Nucleated Red Blood Cells Perc 0.0 % (0.0-0.2); Platelet Count Result 183 k/mm3 (150-375); Red Blood Count 4.91 M/mm3 (4.6-6.20); White Blood Count 5.2 K/mm3 (4.5-10.0)
[2025-05-12] MEDS: ATORVASTATIN 40 MG TABLET PO (08:54)
[2025-05-12] MEDS: VALSARTAN 80 MG TABLET PO (08:54)
[2025-05-12] MEDS: PANTOPRAZOLE 40 MG TABLET PO (08:54)
[2025-05-12] MEDS: SPIRONOLACTONE 25 MG TABLET PO (08:54)
[2025-05-12] MEDS: ASPIRIN 81 MG CHEWABLE TABLET PO (08:54)
[2025-05-12] MEDS: OPTI-GEN TAB 1 TABLET PO (08:54)
--- NOTE | 2025-05-12 09:02 | PM.CNCAR ---
Assessment and Plan Assessment and plan (1) Chest pain: Qualifiers: Chest pain type: unspecified Qualified Code(s): R07.9 - Chest pain, unspecified Code(s): R07.9 - Chest pain, unspecified Status: Acute (2) Hypertension: Qualifiers: Hypertension type: primary hypertension Qualified Code(s): I10 - Essential (primary) hypertension Code(s): I10 - Essential (primary) hypertension Status: Chronic Plan Diagnosis: -Chest pain-troponin negative X 3, remains chest pain-free at this time -CAD, history of VA in 2010 status post PCI with 1 stent -Hypertension-not well controlled -Hyperlipidemia -Remote history of diabetes not on any medications now -Cough due to bronchitis Plan: -No urgent indication for cardiac catheterization at this time as patient has not had recurrence of chest pain since yesterday. Troponin X 3 negative. He is not in acute heart failure. He is electrically stable. He is hypertensive. -Follow-up on echo. If any new regional wall motion abnormalities are noted on echo then recommend cardiac catheterization in a.m. Otherwise, continue medical management with aspirin, statin, beta-cristobal, control risk factors including blood pressure, and follow-up with his outpatient lawn specialist for outpatient stress test -Continue aspirin 81 mg daily -Good risk factor control- target blood pressure less than 120/80 mm Hg, LDL less than 70 -Continue statin -Continue Coreg -Continue valsartan, spironolactone, nifedipine (home medications) -Management of bronchitis per primary team -Patient agrees with above plan History of Present Illness History of Present Illness Consult date/time: 05/12/25 09:02 Reason For Visit: Unstable Angina/Heart Score 4 Narrative: 75-year-old male with history of CAD, VA in 2010 status post PCI with 1 stent placed at [facility] in [place] (pain at the time of VA was located in his chest with radiation to bilateral arms associated with diaphoresis), hypertension, hyperlipidemia, remote history of diabetes (lost 60 lb and A1c improved, no longer on medications), history of prostate cancer status post prostatectomy and radiation, recent bronchitis being treated with steroids presents with chief complaints of left-sided chest pain that woke him from sleep at 5:30 a.m. yesterday. He describes the pain as indigestion as if someone was stabbing directly into his back. Pain was constant. Pain was associated with shortness of breath and cough. Patient initially thought that the pain was due to indigestion and took an antacid without relief. There were no aggravating factors. Pain was relieved within 20 minutes after he was administered 4 baby aspirin and nitro in the ER around 11:00 a.m. he has not had recurrence of his chest pain since 11:00 a.m. yesterday. He has been having cough for the past 4-6 weeks. He has chest tightness from coughing. He called his primary care physician who gave him a a course of amoxicillin. Patient presented to urgent care as his symptoms did not relieve with amoxicillin. He states he was started on steroids and prescribed erythromycin. However he has not taken the erythromycin due to interaction with trazodone which is his home medication. No palpitations, presyncope, syncope, dizziness, lightheadedness, recent weight gain, or leg swelling. Troponin has been negative. EKG showed sinus rhythm with nonspecific ST T wave changes. Echo is pending. Workup: Hemoglobin: 14.6 Creatinine: 0.80 Troponin: Negative X 3 EKG: Sinus rhythm, nonspecific ST-T wave changes Chest x-ray: No acute cardiopulmonary pathology CT chest, abdomen, pelvis:IMPRESSION: 1. No aneurysm or dissection, the major aortic tributaries are unremarkable. No acute process identified. Right kidney superior pole complex cyst 2.5 x 2.5 cm incompletely evaluated with additional complex cyst, outpatient renal ultrasound recommended. Review of Systems Review of Systems: A complete review of systems was performed and pertinent positives are reported in the HPI. [facility] Past Medical History Medical History (Updated 05/11/25 @ 14:52 by Dora Rubalcava APRN) Hyperlipidemia Hypertension History of prostate cancer s/p removal and radiation Myocardial infarct approx 2004 Surgical History Surgical History H/O heart artery stent x1, [facility] [place] History of urologic surgery AUS, artificial urinary sphincter Family History Family History Father Acute myocardial infarction >65yo Social History Social History Social History: Smoking status: Never smoker Lack of Transportation: No Lack of Food: Never True Current Housing: I Have Housing Concerned About Future Housing: No Difficulty Paying Gas/Electric Bills: No Difficulty Paying for Meds: No Currently Unemployed: No Education: High School Diploma/GED Difficulty w/ Childcare or Family Care: No Living arrangements: with family Additional living arrangements comments: Spouse/ Sexual Orientation (if Verbalized by the Patient): Lesbian, Lantigua, or Homosexual Spiritual care concerns: No Meds Home Medications and Allergies Home Medications ?Medication ?Instructions ?Recorded ?Confirmed ?Type aspirin 81 mg capsule 81 mg PO DAILY 05/11/25 05/11/25 History atorvastatin 40 mg tablet 40 mg PO DAILY 05/11/25 05/11/25 History carvedilol 6.25 mg tablet 6.25 mg PO BID 05/11/25 05/11/25 History methylprednisolone 4 mg tablets in See Rx Instructions .Route .COMPLEX 05/11/25 05/11/25 History a dose pack [id number] 300 mcg-K 60 1 tablet PO DAILY 05/11/25 05/11/25 History mcg-lycop 600 mcg-lutein 300 mcg tablet ([facility]) nifedipine 60 mg tablet,extended 60 mg PO DAILY 05/11/25 05/11/25 History release pantoprazole 40 mg tablet,delayed 40 mg PO DAILY 05/11/25 05/11/25 History release spironolactone 25 mg tablet 25 mg PO DAILY 05/11/25 05/11/25 History tadalafil 20 mg tablet 20 mg PO PRN PRN sexual activity 05/11/25 05/11/25 History trazodone 100 mg tablet 100 mg PO DAILY 05/11/25 05/11/25 History valsartan 80 mg tablet 80 mg PO BID 05/11/25 05/11/25 History Allergies Allergy/AdvReac Type Severity Reaction Status Date / Time Penicillins Allergy Unknown Unknown Verified 05/11/25 06:40 Vital Signs Vital Signs - 24 hr 05/11/25 09:03 05/11/25 09:11 05/11/25 09:16 Temperature Pulse Rate 73 76 76 Respiratory Rate 16 22 H 16 Blood Pressure 118/67 Pulse Oximetry 97 92 92 05/11/25 09:17 05/11/25 09:30 05/11/25 09:51 Temperature Pulse Rate 80 67 66 Respiratory Rate 15 18 13 Blood Pressure 100/63 116/68 Pulse Oximetry 92 94 96 05/11/25 10:00 05/11/25 10:00 05/11/25 10:24 Temperature Pulse Rate 62 62 68 Respiratory Rate 18 19 34 H Blood Pressure 114/65 Pulse Oximetry 95 95 05/11/25 10:30 05/11/25 10:37 05/11/25 11:05 Temperature Pulse Rate 63 64 64 Respiratory Rate 16 15 17 Blood Pressure 122/63 Pulse Oximetry 97 95 96 05/11/25 11:08 05/11/25 11:18 05/11/25 11:30 Temperature Pulse Rate 66 67 74 Respiratory Rate 18 14 18 Blood Pressure 120/65 Pulse Oximetry 95 96 95 05/11/25 11:45 05/11/25 11:46 05/11/25 12:00 Temperature Pulse Rate 70 73 77 Respiratory Rate 20 15 15 Blood Pressure 132/71 Pulse Oximetry 96 95 95 05/11/25 12:15 05/11/25 12:30 05/11/25 12:32 Temperature Pulse Rate 76 79 75 Respiratory Rate 19 21 H 16 Blood Pressure 107/78 Pulse Oximetry 95 94 95 05/11/25 12:45 05/11/25 12:46 05/11/25 13:34 Temperature Pulse Rate 70 69 78 Respiratory Rate 13 14 18 Blood Pressure 144/74 H 135/72 Pulse Oximetry 99 05/11/25 13:45 05/11/25 14:00 05/11/25 15:50 Temperature 36.8 C 36.7 C Pulse Rate 75 77 60 Respiratory Rate 14 14 Blood Pressure 136/71 135/61 Pulse Oximetry 98 97 05/11/25 16:00 05/11/25 17:33 05/11/25 20:00 Temperature 36.6 C Pulse Rate 61 61 60 Respiratory Rate 14 Blood Pressure 132/71 Pulse Oximetry 98 05/11/25 20:00 05/11/25 21:05 05/11/25 22:00 Temperature Pulse Rate 78 68 60 Respiratory Rate Blood Pressure Pulse Oximetry 05/11/25 23:50 05/12/25 00:00 05/12/25 02:00 Temperature 36.6 C Pulse Rate 58 L 61 64 Respiratory Rate 14 Blood Pressure 158/75 H Pulse Oximetry 95 05/12/25 04:00 05/12/25 04:00 05/12/25 06:00 Temperature 36.6 C Pulse Rate 68 64 64 Respiratory Rate 15 Blood Pressure 116/57 L Pulse Oximetry 97 05/12/25 08:06 05/12/25 08:53 Temperature 36.6 C Pulse Rate 90 78 Respiratory Rate 18 Blood Pressure 143/71 H Pulse Oximetry 95 Exam Narrative: General: Alert oriented x3, no acute distress Neck: Supple, no JVD Chest: Bilaterally clear to auscultation, no rales or rhonchi Cardiac: S1, S2 +, regular rate, regular rhythm, no murmurs or rubs Extremities: No pedal edema, no skin rash Neurologic: Alert and oriented x3, no focal neurological deficits Results Labs and Meds 05/12/25 03:49 05/11/25 06:44 Lab results: Cardiac Enzymes 05/11/25 05/11/25 Range/Units 09:48 12:35 Troponin I < 0.012 < 0.012 (0.000-0.034) ng/mL Coagulation 05/11/25 05/11/25 Range/Units 06:44 12:35 PT 12.8 13.4 (11.1-14.7) Seconds APTT 26.1 25.6 (22.3-36.8) Seconds CBC 05/12/25 Range/Units 03:49 WBC 5.2 (4.5-10.0) K/mm3 RBC 4.91 (4.6-6.20) M/mm3 Hgb 14.6 (14.0-18.0) g/dL Hct 42.5 (42.0-52.0) % Plt Count 183 (150-375) k/mm3 Lymph # (Auto) 0.80 L (0.9-3.2) K/mm3 [place] # (Auto) 0.3 (0.1-0.6) K/mm3 Eos # (Auto) 0.0 (0-0.3) K/mm3 Baso # (Auto) 0.0 (0.0-0.1) K/mm3 Intake and Output 05/11/25 05/12/25 05/12/25 23:59 07:59 15:59 Intake Total 400 Balance 400 Intake: Oral 400 Other: # Unmeasured Voids 1 1 Patient Weight 05/12/25 23:59 Weight 82.4 kg
--- NOTE | 2025-05-12 12:54 | PM.DS ---
DS: Admitting Diagnosis Discharge Date 05/12/25 Admitting Diagnosis Chest pain DS: Discharge Diagnosis Discharge Diagnosis (1) Hypertension: Qualifiers: Hypertension type: primary hypertension Qualified Code(s): I10 - Essential (primary) hypertension Code(s): I10 - Essential (primary) hypertension Status: Chronic (2) Chest pain: Qualifiers: Chest pain type: unspecified Qualified Code(s): R07.9 - Chest pain, unspecified Code(s): R07.9 - Chest pain, unspecified Status: Acute DS: Summary Hospital Course Reason for hospitalization: Chest pain Hospital Course: 75 y/o M with PMH of [place], HTN, prostate cancer s/p prostatectomy/radiation, remote history of diabetes (lost 60 lb and A1c improved, no longer on medications), and HLD presents here with chest pain. Troponins remained negative. Was seen by Cardiology. Echocardiogram since unremarkable. Chest pain had resolved. Patient was discharged home in stable condition, advised to follow-up with cardiology as an outpatient to have an outpatient stress test. Patient is currently on Medrol Dosepak for bronchitis. Status at Discharge Functional status at discharge: independent ambulation Time Spent with Patient Time attestation: Total time spent providing and/or coordinating discharge services: 32 minutes Exam Narrative: General: Alert oriented x3, no acute distress Neck: Supple, no JVD Chest: Bilaterally clear to auscultation, no rales or rhonchi Cardiac: S1, S2 +, regular rate, regular rhythm, no murmurs or rubs Extremities: No pedal edema, no skin rash Neurologic: Alert and oriented x3, no focal neurological deficits DS: Data Data Completed and Pending Labs on day of discharge: Labs from last 24 hours 05/12/25 05/11/25 03:49 12:35 WBC 5.2 RBC 4.91 Hgb 14.6 Hct 42.5 MCV 86.6 MCH 29.7 MCHC 34.4 RDW 13.1 Plt Count 183 MPV 9.1 Immature Gran % (Auto) 0.6 H Neut % (Auto) 78.7 H Lymph % (Auto) 15.5 L [place] % (Auto) 5.2 Eos % (Auto) 0.0 Baso % (Auto) 0.0 L Lymph # (Auto) 0.80 L [place] # (Auto) 0.3 Eos # (Auto) 0.0 Baso # (Auto) 0.0 Abs Immat Gran (auto) 0.03 Absolute Neuts (auto) 4.1 Absolute Nucleated RBC 0.000 Nucleated RBC % 0.0 PT 13.4 INR 1.0 APTT 25.6 Troponin I < 0.012 Discharge Plan Discharge Attending physician on discharge: Rosa Moreno Consulting providers: Nathan Del Valle; Sven Preciado Discharging Clinician: Rosa Moreno Anticipated Discharge Date/Time: 05/12/25 12:53 Patient Disposition: Home Activity: as tolerated Diet: heart healthy Patient Instructions: Antibiotic Form Patient Language: Palestinian Stand Alone Forms: General Discharge Information Follow-up/Referrals: Sven Preciado MD [Physician, Cardiology] - 4 Weeks Discharge Medications: Continued atorvastatin 40 mg tablet 40 mg PO DAILY carvedilol 6.25 mg tablet 6.25 mg PO BID nifedipine 60 mg tablet extended release 60 mg PO DAILY pantoprazole 40 mg tablet,delayed release (DR/EC) 40 mg PO DAILY spironolactone 25 mg tablet 25 mg PO DAILY tadalafil 20 mg tablet 20 mg PO PRN PRN (Reason: sexual activity) trazodone 100 mg tablet 100 mg PO DAILY valsartan 80 mg tablet 80 mg PO BID aspirin 81 mg capsule 81 mg PO DAILY [facility] [id number] mcg tablet 1 tablet PO DAILY methylprednisolone 4 mg tablets,dose pack See Rx Instructions .ROUTE .COMPLEX Rx Instructions: started 7 pills on Monday, took 6 pills yesterday; Date of admission: 05/11/25 12:27 Primary Care Provider: PHYSICIAN NOT ON STAFF,NONSTAFF Admitting Provider: Trice Garcia Attending physician on admission: Trice Garcia Condition: Stable
== END 2025-05-12 13:15 | disposition home or self-care (01) ==
LOC: ANHED 12:11 → ANHIMU 05-12 12:53
PROVIDERS: Emergency Medicine; Admitting Provider Family Medicine; Emergency Provider Student in an Organized Health Care Education/Training Program; Visit Provider Internal Medicine
DX: R07.9 Chest pain, unspecified (principal); J40 Bronchitis, not specified as acute or chronic; I10 Essential (primary) hypertension; E78.5 Hyperlipidemia, unspecified; I25.2 Old myocardial infarction; I25.10 Atherosclerotic heart disease of native coronary artery without angina pectoris; Z85.46 Personal history of malignant neoplasm of prostate; Z92.3 Personal history of irradiation; Z96.0 Presence of urogenital implants; Z66 Do not resuscitate; Z79.82 Long term (current) use of aspirin; Z95.5 Presence of coronary angioplasty implant and graft; Z79.899 Other long term (current) drug therapy; Z20.822 Contact with and (suspected) exposure to COVID-19
CPT/HCPCS: 36415; 71046; 71275; 74174; 80053; 80307; 81003; 83690; 84484; 85025; 85380; 85610; 85730; 87637; 93005; 93306; 99285; A9270; G0378; J1644; Q9967